=== PATIENT | male | born 2000 | race Caucasian/White ===

== ENCOUNTER 2020-11-19 15:14 | Emergency (ER) | payer OTHER ==
[2020-11-19] MEDS ORDERED: Sodium Chloride 0.9% 10 ML Syringe FLUSH PRN (15:20)
--- NOTE | 2020-11-19 16:00 | EDM.PDOC ---
ED HPI GENERAL MEDICAL PROBLEM - General Chief Complaint: Cardiovascular Problem Stated Complaint: [facility] Time Seen by Provider: 11/19/20 15:19 Source of Information: Reports: Patient, EMS History Limitations: Reports: No Limitations - History of Present Illness INITIAL COMMENTS - FREE TEXT/NARRATIVE: The patient presents by [facility] for heart fluttering. 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 He said his heart was fluttering. He denies any fever, chills, cough, congestion, runny nose, chest pain, shortness of breath, abdominal pain, nausea or vomiting. He says he just does not feel right. He has no history of this before. He did drink an energy drink this morning and did not each much. He has no health problems. Onset: Gradual Duration: Hour(s): Severity: Moderate Improves with: Reports: None Worsens with: Reports: None Associated Symptoms: Reports: No Other Symptoms - Related Data Allergies Allergy/AdvReac Type Severity Reaction Status Date / Time No Known Allergies Allergy Verified 11/19/20 15:23 Home Meds: Home Meds . [No Known Home Meds] 11/19/20 [History] Past Medical History Respiratory History: Reports: Asthma - Past Surgical History Musculoskeletal Surgical History: Reports: Other (See Below) Other Musculoskeletal Surgeries/Procedures:: ACL and MCL repair Social & Family History - Tobacco Use Tobacco Use Status *Q: Current Every Day Tobacco User Years of Tobacco use: 5 Packs/Tins Daily: 0.1 - Recreational Drug Use Recreational Drug Use: No ED ROS GENERAL - Review of Systems Review Of Systems: See Below Constitutional: Reports: No Symptoms HEENT: Reports: No Symptoms Respiratory: Reports: No Symptoms Cardiovascular: Reports: Palpitations. Denies: Chest Pain Endocrine: Reports: No Symptoms GI/Abdominal: Reports: No Symptoms : Reports: No Symptoms Musculoskeletal: Reports: No Symptoms ED EXAM, GENERAL - Physical Exam Exam: See Below Exam Limited By: No Limitations General Appearance: Alert, No Apparent Distress Ears: Normal External Exam Nose: Normal Inspection Head: Atraumatic, Normocephalic Neck: Normal Inspection Respiratory/Chest: No Respiratory Distress, Lungs Clear, Normal Breath Sounds Cardiovascular: Regular Rate, Rhythm, No Edema, No Murmur GI/Abdominal: Soft, Non-Tender, No Organomegaly, No Mass Back Exam: Normal Inspection Extremities: Normal Inspection Neurological: Alert, Oriented, No Motor/Sensory Deficits #1 Interpretation EKG Date: 11/19/20 Time: 15:19 Rhythm: Other (sinus tachycardia) Rate (Beats/Min): 112 [place]: Normal P-Wave: Present QRS: Normal ST-T: Normal QT: Normal Course - Vital Signs Last Recorded V/S: Last Vital Signs Temp 97.3 F 11/19/20 15:21 Pulse 123 H 11/19/20 16:15 Resp 16 11/19/20 15:45 BP 122/94 H 11/19/20 16:15 Pulse Ox 97 11/19/20 15:45 - Orders/Labs/Meds Orders: Active Orders 24 hr Category Date Time Status Cardiac Monitoring [RC] . DIRECTED Care 11/19/20 15:20 Active EKG Documentation Completion [RC] STAT Care 11/19/20 15:21 Active Peripheral IV Care [RC] . DIRECTED Care 11/19/20 15:21 Active Sodium Chloride 0.9% [Saline Flush] Med 11/19/20 15:20 Active 10 ml FLUSH ASDIRECTED PRN Peripheral IV Insertion Adult [OM.PC] Stat Oth 11/19/20 15:20 Ordered Medication Orders Sodium Chloride (Sodium Chloride 0.9% 10 Ml Syringe) 10 ml FLUSH ASDIRECTED PRN PRN Reason: Keep Vein Open Last Admin: 11/19/20 15:35 Dose: 10 ml Documented by: TIERRA Labs: Laboratory Tests 11/19/20 11/19/20 Range/Units 15:28 15:28 WBC 7.22 (4.23-9.07) K/mm3 RBC 4.97 (4.63-6.08) M/mm3 Hgb 15.0 (13.7-17.5) gm/dl Hct 43.8 (40.1-51.0) % MCV 88.1 (79.0-92.2) fl MCH 30.2 (25.7-32.2) pg MCHC 34.2 (32.2-35.5) g/dl RDW Std Deviation 37.9 (35.1-43.9) fL Plt Count 246 (163-337) K/mm3 MPV 10.2 (9.4-12.3) fl Neut % (Auto) 64.6 (34.0-67.9) % Lymph % (Auto) 23.7 (21.8-53.1) % [place] % (Auto) 10.4 (5.3-12.2) % Eos % (Auto) 1.1 (0.8-7.0) Baso % (Auto) 0.1 (0.1-1.2) % Neut # (Auto) 4.66 (1.78-5.38) K/mm3 Lymph # (Auto) 1.71 (1.32-3.57) K/mm3 [place] # (Auto) 0.75 (0.30-0.82) K/mm3 Eos # (Auto) 0.08 (0.04-0.54) K/mm3 Baso # (Auto) 0.01 (0.01-0.08) K/mm3 Sodium 148 H (136-145) mEq/L Potassium 3.7 (3.5-5.1) mEq/L Chloride 106 (98-107) mEq/L Carbon Dioxide 26 (21-32) mEq/L Anion Gap 19.7 H (5-15) BUN 14 (7-18) mg/dL Creatinine 1.1 (0.7-1.3) mg/dL Est Cr Clr Drug Dosing 89.34 mL/min Estimated GFR (MDRD) > 60 (>60) mL/min BUN/Creatinine Ratio 12.7 L (14-18) Glucose 107 H (74-106) mg/dL Calcium 10.0 (8.5-10.1) mg/dL Total Bilirubin 0.6 (0.2-1.0) mg/dL AST 20 (15-37) U/L ALT 37 (16-63) U/L Alkaline Phosphatase 70 (46-116) U/L Troponin I < 0.017 (0.00-0.056) ng/mL Total Protein 8.3 H (6.4-8.2) g/dl Albumin 4.6 (3.4-5.0) g/dl Globulin 3.7 gm/dL Albumin/Globulin Ratio 1.2 (1-2) TSH 3rd Generation 1.992 (0.516-4.13) uIU/mL Meds: Medications Generic Name Dose Route Start Last Admin Trade Name Freq PRN Reason Stop Dose Admin Sodium Chloride 10 ml 11/19/20 15:20 11/19/20 15:35 Sodium Chloride 0.9% 10 Ml Syringe FLUSH 10 ml ASDIRECTED PRN Administration Keep Vein Open Discontinued Medications Generic Name Dose Route Start Last Admin Trade Name Freq PRN Reason Stop Dose Admin Metoprolol Succinate 50 mg 11/19/20 16:06 11/19/20 16:15 Metoprolol Succinate 50 Mg Tab.Er PO 11/19/20 16:07 50 mg ONETIME ONE Administration - Re-Assessments/Exams Free Text/Narrative Re-Assessment/Exam: 11/19/20 16:36 I ordered an EKG, labs and metoprolol 50mg PO. His EKG shows a sinus tachycardia with no acute changes. His CBC looks good. His Na was elevated at 148. His heart rate is better now. I will discharge him home and have him avoid stimulants. Departure - Departure Time of Disposition: 16:40 Disposition: Home, Self-Care 01 Condition: Good Clinical Impression: Palpitations, Sinus tachycardia Forms: ED Department Discharge Additional Instructions: Avoid all stimulants such as coffee, tea, soda, energy drinks and nicotine. That will stimulate your heart to beat fast. Drink plenty of fluids. Follow up with your doctor when you get home. Sepsis Event Note (ED) - Evaluation Sepsis Screening Result: No Definite Risk - Focused Exam Vital Signs: Vital Signs Temp Pulse Pulse Resp BP BP Pulse Ox 11/19/20 16:15 123 H 122/94 H 11/19/20 15:45 125 H 16 135/93 H 97 11/19/20 15:21 97.3 F 128 H 16 143/94 H 97 - My Orders Last 24 Hours: My Active Orders 11/19/20 15:20 Cardiac Monitoring [RC] . DIRECTED Sodium Chloride 0.9% [Saline Flush] 10 ml FLUSH ASDIRECTED PRN Peripheral IV Insertion Adult [OM.PC] Stat 11/19/20 15:21 EKG Documentation Completion [RC] STAT Peripheral IV Care [RC] . DIRECTED - Assessment/Plan Last 24 Hours: My Active Orders 11/19/20 15:20 Cardiac Monitoring [RC] . DIRECTED Sodium Chloride 0.9% [Saline Flush] 10 ml FLUSH ASDIRECTED PRN Peripheral IV Insertion Adult [OM.PC] Stat 11/19/20 15:21 EKG Documentation Completion [RC] STAT Peripheral IV Care [RC] . DIRECTED
[2020-11-19] MEDS ORDERED: Metoprolol Succinate 50 MG Tab.ER PO ONE (16:06)
== END 2020-11-19 16:45 | disposition home or self-care (01) ==
LOC: JD.ED 15:14
DX: R00.2 Palpitations (principal); R00.0 Tachycardia, unspecified; J45.909 Unspecified asthma, uncomplicated; Z72.0 Tobacco use
CPT/HCPCS: 36415; 80053; 84443; 84484; 85025; 93005; 99285; A9270; 93010; 99284